=== PATIENT | female | born 1980 | race Caucasian/White ===

== ENCOUNTER 2016-11-26 12:31 | Emergency (ER) | payer MEDICAID ==
[~2016-11-26] VITALS: Ht 170.2 cm; Wt 75.0 kg
[~2016-11-26 12:31] MED LIST: CEPHALEXIN500 M1 PO; FLEXERIL 1010 MG/TAB PO; NAPROSYN500 MG PO; NO HOME MEDICATIONS; NORCO 325 MG-51 TAB PO
[2016-11-26 12:33] VITALS: BP 131/81; TEMP 98
[2016-11-26] MEDS ORDERED: PREDNISONE20 MG PO (14:16)
[2016-11-26] MEDS ORDERED: NORCO 325 MG-51 TAB PO (14:16)
[2016-11-26 14:41] VITALS: PULSE 100
== END 2016-11-26 14:41 | disposition home or self-care (01) ==
LOC: COL.ER 12:31
DX: M25.521 Pain in right elbow (principal)

== ENCOUNTER 2017-06-08 | Emergency (ER) | payer MEDICAID ==
[~2017-06-08] VITALS: Ht 170.2 cm; Wt 81.8 kg
[~2017-06-08] MED LIST changes: +PREDNISONE20 MG PO
[2017-06-08 00:05] VITALS: TEMP 97.9
[2017-06-08 03:14] VITALS: BP 123/81; PULSE 76
== END 2017-06-08 03:14 | disposition home or self-care (01) ==
LOC: COL.ER
DX: G43.909 Migraine, unspecified, not intractable, without status migrainosus (principal); F17.210 Nicotine dependence, cigarettes, uncomplicated

== ENCOUNTER 2017-11-29 16:39 | Emergency (ER) | payer MEDICAID ==
[~2017-11-29] VITALS: Ht 170.2 cm; Wt 80.5 kg
[2017-11-29] MEDS ORDERED: PEPCID 20MG TAB20 MG PO (17:09)
[2017-11-29] MEDS ORDERED: PREDNISONE20 MG PO (17:09)
[2017-11-29 17:29] VITALS: BP 123/80; PULSE 112; TEMP 98.8
== END 2017-11-29 17:36 | disposition home or self-care (01) ==
LOC: COL.ER 16:39
DX: L50.9 Urticaria, unspecified (principal); F41.9 Anxiety disorder, unspecified; F32.9 Major depressive disorder, single episode, unspecified; F17.210 Nicotine dependence, cigarettes, uncomplicated; Z90.89 Acquired absence of other organs
CPT/HCPCS: J7512

== ENCOUNTER 2018-02-11 11:25 | Emergency (ER) | payer MEDICAID ==
[~2018-02-11] VITALS: Ht 170.2 cm; Wt 76.4 kg
[~2018-02-11 11:25] MED LIST changes: +PEPCID 20MG TAB20 MG PO
[2018-02-11 11:28] VITALS: BP 124/80; TEMP 97.7
[2018-02-11] MEDS ORDERED: NORCO 325 MG-51 TAB PO (12:52)
[2018-02-11] MEDS ORDERED: FLEXERIL 1010 MG/TAB PO (12:52)
[2018-02-11 13:02] VITALS: PULSE 84
== END 2018-02-11 13:03 | disposition home or self-care (01) ==
LOC: COL.ER 11:25
DX: M54.6 Pain in thoracic spine (principal); F17.210 Nicotine dependence, cigarettes, uncomplicated; W11.XXXA Fall on and from ladder, initial encounter
CPT/HCPCS: J1885; J2360

== ENCOUNTER 2018-06-19 07:51 | Emergency (ER) | payer MEDICAID ==
[~2018-06-19] VITALS: Ht 170.2 cm; Wt 72.7 kg
[2018-06-19 07:55] VITALS: BP 119/69; PULSE 110; TEMP 97.9
== END 2018-06-19 09:21 | disposition home or self-care (01) ==
LOC: COL.ER 07:51
DX: S90.811A Abrasion, right foot, initial encounter (principal); F32.9 Major depressive disorder, single episode, unspecified; F41.9 Anxiety disorder, unspecified; F17.210 Nicotine dependence, cigarettes, uncomplicated; W20.8XXA Other cause of strike by thrown, projected or falling object, initial encounter; Y92.009 Unspecified place in unspecified non-institutional (private) residence as the place of occurrence of the external cause

== ENCOUNTER 2018-06-30 21:04 | Emergency (ER) | payer MEDICAID ==
[~2018-06-30] VITALS: Ht 170.2 cm; Wt 72.7 kg
[2018-06-30 21:20] VITALS: BP 199/77; PULSE 100; TEMP 98.2
== END 2018-07-01 00:28 | disposition home or self-care (01) ==
LOC: COL.ER 21:04
DX: M25.522 Pain in left elbow (principal); M79.632 Pain in left forearm
CPT/HCPCS: J1885

== ENCOUNTER 2018-11-01 15:20 | Emergency (ER) | payer MEDICAID ==
[~2018-11-01] VITALS: Ht 170.2 cm; Wt 81.8 kg
[2018-11-01 15:42] VITALS: BP 135/77; PULSE 84
== END 2018-11-01 16:36 | disposition left against medical advice (07) ==
LOC: COL.ER 15:20
DX: M54.2 Cervicalgia (principal)

== ENCOUNTER 2019-01-01 10:51 | Emergency (ER) | payer MEDICAID ==
[~2019-01-01] VITALS: Ht 170.2 cm; Wt 83.2 kg
[2019-01-01 10:53] VITALS: TEMP 98.7
[2019-01-01 11:45] LABS: BASO # 0.1 (0.0-0.2); BASO % 0.7 % (0.0-2.0); EOS # 0.2 (0.0-0.7); EOS % 2.1 % (0-4.0); GRAN # 3.9 (1.4-6.5); GRAN % 54.4 % (42.2-75.2); HEMOGLOBIN 13.3 g/dl (12.5-16.0); LYMPH # 2.6 (1.2-3.4); LYMPH % 36.7 % (20.0-51.0); MEAN CELL VOLUME 94 fl (80.0-100.0); MEAN CORPUSCULAR HEMOGLOBIN 30 pg (27.0-31.0); MEAN CORPUSCULAR HGB CONC 32 g/dl (33.0-37.0); MEAN PLATELET VOLUME 9.9 fl (7.4-10.4); MONO # 0.4 (0.1-0.6); MONO % 5.8 % (1.7-9.3); PLATELET COUNT 210 K/mm3 (130-400); RED BLOOD COUNT 4.37 M/mm3 (4.10-5.30); REDCELL DISTRIBUTION WIDTH-CV 12.1 % (11.5-14.5)
[2019-01-01 11:56] LABS: CALCIUM 9.2 mg/dL (8.4-10.2); CREATININE, serum 0.71 (0.52-1.25); POTASSIUM 4.6 mmol/L (3.4-5.0)
[2019-01-01 13:07] VITALS: BP 119/87; PULSE 82
== END 2019-01-01 13:00 | disposition home or self-care (01) ==
LOC: COL.ER 10:51
PROVIDERS: Emergency Medicine
DX: R51 Headache (principal); Z86.69 Personal history of other diseases of the nervous system and sense organs
CPT/HCPCS: J0780; J1200; J1885; J7030

== ENCOUNTER 2019-05-10 15:47 | Emergency (ER) | payer MEDICAID ==
[~2019-05-10] VITALS: Ht 170.2 cm; Wt 86.4 kg
[2019-05-10 16:12] VITALS: BP 114/82; PULSE 109; TEMP 98.2
== END 2019-05-10 16:55 | disposition left against medical advice (07) ==
LOC: COL.ER 15:47
DX: S00.86XA Insect bite (nonvenomous) of other part of head, initial encounter (principal); W57.XXXA Bitten or stung by nonvenomous insect and other nonvenomous arthropods, initial encounter